=== PATIENT | female | born 1990 | race Caucasian/White ===

== ENCOUNTER 2023-06-06 12:09 | Inpatient (IN) | payer BC, OTHER ==
[2023-06-06 12:30] VITALS: BMI 43.2
[2023-06-06] MEDS ORDERED: Tranexamic Acid 1,000 MG/10 ML VIAL IVP PRN (15:13)
[2023-06-06] MEDS ORDERED: Famotidine/PF 20 mg/2ml Vial SLOW IVP PRN (15:13)
[2023-06-06] MEDS ORDERED: Methylergonovine 0.2 MG/ML VIAL IM PRN (15:13)
[2023-06-06] MEDS ORDERED: hydrALAZINE 20 MG/ML VIAL SLOW IVP PRN ×2 (15:13→21:04)
[2023-06-06] MEDS ORDERED: Ondansetron PF 4 MG/2 ML Vial IVP PRN ×4 (15:13→21:04)
[2023-06-06] MEDS ORDERED: Diphenoxylate HCl/Atropine Tablet PO PRN (15:13)
[2023-06-06] MEDS ORDERED: Misoprostol 200 MCG TAB PR PRN (15:13)
[2023-06-06] MEDS ORDERED: Bicitra 30 ML UDCUP PO PRN (15:13)
[2023-06-06] MEDS ORDERED: Carboprost 250 MCG/ML AMP IM PRN (15:13)
[2023-06-06] MEDS ORDERED: Promethazine HCl 25 MG/ML VIAL IM PRN ×3 (15:13→21:04)
[2023-06-06] MEDS ORDERED: Oxytocin 30 units/NS 500 ML 500 ML IV SCH (15:15)
[2023-06-06] MEDS ORDERED: CEFAZOLIN 3 GM, Admixture Fee 1 EACH in Sodium Chloride 0.9% 100 ML IVPB SCH (15:15)
[2023-06-06] MEDS ORDERED: Lactated Ringer's 1,000 ML IV SCH (15:15)
[2023-06-06] MEDS ORDERED: Morphine PF 10 MG/10 ML VIAL ONE (15:42)
[2023-06-06] MEDS ORDERED: Phenylephrine 40 MG/NS 250 ML 250 ML ONE (15:47)
[2023-06-06] MEDS ORDERED: Metoclopramide HCl 10 MG (2 mL) VIAL ONE (15:51)
[2023-06-06] MEDS ORDERED: Dexamethasone 4 mg/ml Vial ONE (15:51)
[2023-06-06] MEDS ORDERED: Ondansetron PF 4 MG/2 ML Vial ONE (15:51)
[2023-06-06] MEDS ORDERED: Oxytocin 10 UNITS/ML VIAL ONE ×2 (15:52→17:32)
[2023-06-06 16:06] LABS: Hematocrit 39.1 % (34.9-44.5); Hemoglobin 13.1 g/dL (12.0-15.5); Mean Corpuscular HGB CONC 33.5 g/dL (32.0-36.0); Mean Corpuscular Hemoglobin 30.6 pg (27.0-33.0); Mean Corpuscular Volume 91.4 fl (81.6-98.3); Mean Platelet Volume 11.2 fl (7.4-10.4); Platelet Count 263 10x3/uL (150-450); RBC Distribution Width 13.7 % (11.5-14.5); Red Blood Cell (RBC) Count 4.28 10x6/uL (3.90-5.03); White Blood Cell (WBC) Count 11.9 10x3/uL (3.5-10.5)
[2023-06-06] MEDS ORDERED: Naloxone HCl 0.4 mg/ml Vial IV PRN (16:19)
[2023-06-06] MEDS ORDERED: Naloxone HCl 0.4 mg/ml Vial IVP PRN ×2 (16:19)
[2023-06-06] MEDS ORDERED: fentaNYL 50 mcg/mL 1 mL Vial SLOW IVP PRN (16:19)
[2023-06-06] MEDS ORDERED: Promethazine HCl 25 MG SUPP PR PRN (16:19)
[2023-06-06] MEDS ORDERED: Meperidine HCl/PF 25 MG (1 mL) VIAL SLOW IVP PRN (16:19)
[2023-06-06] MEDS ORDERED: diphenhydrAMINE 50 MG/ML VIAL IVP PRN (16:19)
[2023-06-06] MEDS ORDERED: Moisturizing Cream (Eucerin) 113 GM JAR TOP PRN (16:19)
[2023-06-06] MEDS ORDERED: Communication Order-Pharmacy FS SCH (16:30)
[2023-06-06 16:38] LABS: HBSAg Index 0.21 S/CO (0-0.99); Hep B Surf Ag - L&D Non-Reactive S/CO (NonReactive)
[2023-06-06 16:39] LABS: Syphilis Antibody Nonreactive (Nonreactive); Syphilis Antibody Index 0.07 S/CO (<1.00 Non-Reactive)
[2023-06-06] MEDS ORDERED: Ketorolac Tromethamine 30 MG (1 mL) VIAL ONE (17:49)
[2023-06-06] MEDS ORDERED: HYDROmorphone 0.5 MG/0.5 ML SYRINGE SLOW IVP PRN (18:47)
[2023-06-06] MEDS ORDERED: Acetaminophen 325 MG TAB PO PRN (21:04)
[2023-06-06] MEDS ORDERED: Bisacodyl 10 MG SUPP PR PRN (21:04)
[2023-06-06] MEDS ORDERED: diphenhydrAMINE 25 MG CAP PO PRN (21:04)
[2023-06-06] MEDS ORDERED: Lanolin Ointment 7 GM TUBE TOP PRN (21:04)
[2023-06-06] MEDS ORDERED: Boostrix 0.5 ML (Tdap) VIAL (>/=7 yrs of age) IM ONE (21:04)
[2023-06-07] MEDS ORDERED: Ketorolac Tromethamine 30 MG (1 mL) VIAL IVP SCH
[2023-06-07] MEDS: Docusate 100 MG CAP PO SCH ×3 (05:01→21:23)
[2023-06-07] MEDS: Ferrous Sulfate 325 MG TAB PO SCH ×3 (05:02→19:25)
[2023-06-07] MEDS: Ketorolac Tromethamine 30 MG (1 mL) VIAL IVP SCH ×3 (05:02→16:20)
[2023-06-07 05:16] LABS: Hematocrit 34.6 % (34.9-44.5); Hemoglobin 11.8 g/dL (12.0-15.5); Mean Corpuscular HGB CONC 34.1 g/dL (32.0-36.0); Mean Corpuscular Hemoglobin 31.1 pg (27.0-33.0); Mean Corpuscular Volume 91.1 fl (81.6-98.3); Mean Platelet Volume 11.2 fl (7.4-10.4); Platelet Count 241 10x3/uL (150-450); RBC Distribution Width 13.6 % (11.5-14.5); White Blood Cell (WBC) Count 18.9 10x3/uL (3.5-10.5)
[2023-06-07] MEDS: HYDROcodone/Acetaminophen 5/325 mg Tablet PO PRN ×4 (09:00→23:17)
[2023-06-07] MEDS: Ibuprofen 800 MG TAB PO SCH ×2 (12:44→21:23)
[2023-06-07] MEDS: Prenatal Vitamin 1 TAB PO SCH (16:18)
[2023-06-08] MEDS: HYDROcodone/Acetaminophen 5/325 mg Tablet PO PRN ×3 (05:03→19:57)
[2023-06-08] MEDS: Ibuprofen 800 MG TAB PO SCH ×3 (05:04→21:08)
[2023-06-08] MEDS: Ferrous Sulfate 325 MG TAB PO SCH ×2 (07:15→21:06)
[2023-06-08] MEDS: Docusate 100 MG CAP PO SCH ×2 (08:58→21:08)
[2023-06-08] MEDS: Simethicone Chewable 80 MG TAB PO PRN ×3 (08:58→21:14)
[2023-06-08] MEDS: Prenatal Vitamin 1 TAB PO SCH (08:58)
[2023-06-09] MEDS: HYDROcodone/Acetaminophen 5/325 mg Tablet PO PRN ×2 (04:31→08:05)
[2023-06-09] MEDS: Ibuprofen 800 MG TAB PO SCH (06:03)
[2023-06-09] MEDS: Ferrous Sulfate 325 MG TAB PO SCH (07:15)
[2023-06-09] MEDS: Prenatal Vitamin 1 TAB PO SCH (08:05)
[2023-06-09] MEDS: Docusate 100 MG CAP PO SCH (08:05)
[2023-06-09] MEDS: Simethicone Chewable 80 MG TAB PO PRN (08:05)
[2023-06-09 08:14] VITALS: TEMP 97.7
[2023-06-09] MEDS ORDERED: Milk Of Magnesia 30 ML UDCUP PO PRN (08:23)
[2023-06-09 13:26] VITALS: BP 100/59
== END 2023-06-09 13:40 | disposition home or self-care (01) | DRG 787 ==
LOC: CSHLD/OP 12:09 → CSHLD 15:10 → CSHPP 20:40
PROVIDERS: ADMIT Family Medicine; ATTEND Family Medicine
PROC: 10D00Z1 Extraction of Products of Conception, Low, Open Approach (ICD-10-PCS; principal; 2023-06-06)
PROC: 3E0234Z Introduction of Serum, Toxoid and Vaccine into Muscle, Percutaneous Approach (ICD-10-PCS; 2023-06-06)
DX: O36.8130 Decreased fetal movements, third trimester, not applicable or unspecified (principal); O36.0930 Maternal care for other rhesus isoimmunization, third trimester, not applicable or unspecified; Z3A.38 38 weeks gestation of pregnancy; Z37.0 Single live birth; O32.1XX0 Maternal care for breech presentation, not applicable or unspecified; O76 Abnormality in fetal heart rate and rhythm complicating labor and delivery; O99.214 Obesity complicating childbirth; E66.01 Morbid (severe) obesity due to excess calories; Z88.2 Allergy status to sulfonamides; Z88.8 Allergy status to other drugs, medicaments and biological substances; Z79.82 Long term (current) use of aspirin
CPT/HCPCS: 36415; 51702; 76819; 85027; 85461; 86780; 86850; 86900; 86901; 87340; 90384; 96372; 99285; J1100; J1885; J2274; J2405; J2550; J2590; J2765; J3490; J7120; S0028